=== PATIENT | male | born 1965 | race Caucasian/White ===

== ENCOUNTER 2017-09-27 12:13 | Day surgery (SDC) | payer OTHER ==
[~2017-09-27] VITALS: Ht 188 cm; Wt 117.9 kg
[~2017-09-27 12:13] MED LIST: CIPROFLOXACIN500 MG PO; NORCO 5-325 TA1 EACH PO; WARFARIN SODIU7.5 MG PO
--- NOTE | 2017-09-27 13:48 | NUR ---
09/27/17 Willian8 Tanisha Egan 1338 PT ARRIVED AWAKE AND TALKING. ALERT AND ORIENTED X3. RESP AND EVEN. 1339 O2 REMOVED. O2 SAT 98% 1344 MD AT BEDSIDE.
--- NOTE | 2017-09-28 08:49 | OR ---
[facility] [address], [place] [address] Signed DATE OF OPERATION: 09/27/2017 SURGEON: Brooke Tellez MD PREOPERATIVE DIAGNOSES: 1. Treatment for acute diverticulitis, nearly resolved, assess for neoplasm. 2. History of pulmonary embolism with chronic anticoagulation (Coumadin). POSTOPERATIVE DIAGNOSIS: Diverticular changes sigmoid, otherwise normal colon. PROCEDURE: Total colonoscopy to cecum. ANESTHESIA: Intravenous sedation, fentanyl 200 mcg, Versed 10 mg. INDICATION: This 52-year-old white man is a patient of Dr. Jay Ramos and was treated for acute diverticulitis greater than a month ago. Antibiotics Cipro and Flagyl were used and a CT scan of the abdomen performed on August 10, 2017 did show acute diverticulitis with some extraluminal gas. He has recovered almost completely, only occasionally have some small amounts of left lower abdominal pain. He is admitted at this time to undergo colonoscopy to better confirm there is no sign of neoplastic change that had accounted for his CT scan findings. He understands the risks of bleeding, infection, and perforation related to colonoscopy and wished to proceed. Additionally, the patient is chronically anticoagulated, having had a pulmonary embolism greater than two years ago related to a deep venous thrombosis of his leg (provoked) from long airplane flight. He remains anticoagulated on the basis of personal preference and a thrombophilia evaluation has been negative. He understands the risks of bleeding, infection, and perforation related to colonoscopy and wished to proceed. FINDINGS: The prep was excellent. Complete colonoscopy was undertaken to the cecum without problem. A number of diverticula were noted to the sigmoid. The remaining colon was normal with no sign of polyps, diverticular formation, colitis, or cancer. Retroflex view of the rectum was normal as well. DESCRIPTION OF PROCEDURE: Electronically Signed By: BROOKE TELLEZ MD 09/28/17 0849 PATIENT NAME: ROMY FRANCIS OPERATIVE REPORT DATE OF : 69 REPORT #: [id number] PHYSICIAN: BROOKE TELLEZ MD PCP: JAY RAMOS MD REPORT IS CONFIDENTIAL AND NOT TO BE RELEASED WITHOUT AUTHORIZATION [facility] [address], [place] [address] Signed The patient was brought to the operating room #2 and given intravenous sedation to the point of slurred speech and nystagmus with full cardiopulmonary monitoring. Digital rectal examination was found to be normal. An Olympus video colonoscope was passed in the rectum and manipulated into the sigmoid where diverticula were seen. With careful manipulation and without excessive air insufflation, the scope was manipulated beyond this area, ultimately to the left colon and with time to the cecum itself, the ileocecal valve and appendiceal orifice were normal. The scope was withdrawn from that point and examination throughout showed no sign of abnormality upon withdrawal of scope until the sigmoid was once again encountered showing diverticulosis. There was no sign of inflammatory change, purulent exudate, stricture or other abnormality. Further withdrawal of scope allowed for retroflexed view of the rectum, which was normal. The scope was removed. The patient was taken to recovery room in good condition. CONCLUSION DIAGNOSIS: Sigmoid diverticulosis. No evidence of other abnormality. PLAN: Since he still has a bit of left lower abdominal pain from time to time, we recommend continued low-fiber diet for the moment. We will see him back in 4-6 weeks and assess his progress. If he has exacerbation of symptoms in the meantime, he may require antibiotic therapy again. MD STEFFI Sanchez/YAZL /[id number] cc: Jay Ramos MD Copies: JAY RAMOS MD ~ Electronically Signed By: BROOKE TELLEZ MD 09/28/17 0849 PATIENT NAME: ROMY FRANCIS OPERATIVE REPORT DATE OF : 69 REPORT #: [id number] PHYSICIAN: BROOKE TELLEZ MD PCP: JAY RAMOS MD REPORT IS CONFIDENTIAL AND NOT TO BE RELEASED WITHOUT AUTHORIZATION
== END 2017-09-27 14:24 | disposition home or self-care (01) ==
LOC: OPS 12:13 → DS 12:13 → OPS 13:00 → DS 13:00 → OPS 14:24
PROVIDERS: Surgery
PROC: 0DJD8ZZ Inspection of Lower Intestinal Tract, Via Natural or Artificial Opening Endoscopic (ICD-10-PCS; principal; 2017-09-27 13:00)
DX: K57.30 Diverticulosis of large intestine without perforation or abscess without bleeding (principal); E66.01 Morbid (severe) obesity due to excess calories; G47.30 Sleep apnea, unspecified; Z79.01 Long term (current) use of anticoagulants; Z86.711 Personal history of pulmonary embolism; Z68.33 Body mass index [BMI] 33.0-33.9, adult
CPT/HCPCS: 99153; G0500; J2250; J3010; J7120

== ENCOUNTER 2022-11-11 09:16 | Emergency (ER) | payer BC ==
[~2022-11-11] VITALS: Ht 188 cm; Wt 158.3 kg
[~2022-11-11 09:16] MED LIST changes: +XARELTO15 MG PO; +XARELTO20 MG PO
[2022-11-11 14:47] VITALS: BP 139/95
== END 2022-11-11 14:49 | disposition home or self-care (01) ==
LOC: ED 09:16
DX: R04.0 Epistaxis (principal); E66.9 Obesity, unspecified; Z79.02 Long term (current) use of antithrombotics/antiplatelets
CPT/HCPCS: 30903; 36415; 85025; 85610; 85730; 99283 25; A9270; J2405